=== PATIENT | female | born 1965 | race Caucasian/White ===

== ENCOUNTER 2024-05-12 13:53 | Emergency (ER) | payer BC ==
[~2024-05-12] VITALS: Ht 157.5 cm; Wt 81.4 kg
[2024-05-12 15:42] LABS: BASOPHILS % (AUTO) 0.5 % (0-1); EOSINOPHILS # (AUTO) 0.1 X10'3 (0-0.9); EOSINOPHILS % (AUTO) 0.7 % (0-6); HEMATOCRIT 37.4 % (35.0-45.0); HEMOGLOBIN 12.2 g/dl (12.0-16.0); LYMPHOCYTES # (AUTO) 0.7 X10'3 (1.1-4.8); LYMPHOCYTES % (AUTO) 7.5 % (21-51); MEAN CORPUSCULAR HEMOGLOBIN 29.6 PG (27.0-31.0); MEAN CORPUSCULAR HGB CONC 32.5 g/dL (33.0-36.5); MONOCYTES # (AUTO) 0.7 X10'3 (0-0.9); NEUTROPHILS # (AUTO) 7.4 X10'3 (1.8-7.7); NEUTROPHILS % (AUTO) 83.3 % (42-75); PLATELET COUNT 303 X10'3 (140-440); RED BLOOD COUNT 4.11 X10'6 (4.20-5.60); RED CELL DISTRIBUTION WIDTH 14.7 % (11.5-14.5); WHITE BLOOD COUNT 8.9 X10'3 (4.5-11.0)
[2024-05-12 16:06] LABS: ALBUMIN 3.4 G/DL (3.4-5.0); ANION GAP 12 (8-16); BLOOD UREA NITROGEN 23 MG/DL (7-18); BUN/CREATININE RATIO 26.7 (10.0-20.0); C-REACTIVE PROTEIN 1.88 MG/DL (0.0-0.5); CALCIUM 8.5 MG/DL (8.5-10.1); CHLORIDE 103 MMOL/L (99-107); CREATININE 0.86 MG/DL (0.40-0.90); GLUCOSE 97 MG/DL (70-104); POTASSIUM 4.2 MMOL/L (3.5-5.1); SODIUM 138 MMOL/L (135-145); TOTAL CARBON DIOXIDE 23.4 MMOL/L (24-32); eCRCL 56 ML/MIN; eGFR 68 ML/MIN
[2024-05-12] MEDS: ketorolac trometh 15mg/ml vial 15 MG/ML ML IM ONE (16:10)
[2024-05-12] MEDS: LIDOcaine 1% W/epiNEPHrine 1:100,000 20ml vial IJ ONE (17:50)
[2024-05-12] MEDS ORDERED: IBUP-1984 PO (18:15)
[2024-05-12 18:35] VITALS: BP 146/91; PULSE 83; RESP 16; TEMP 99.4; O2SAT 100
== END 2024-05-12 18:38 | disposition home or self-care (01) ==
LOC: ER 13:54
DX: M25.562 Pain in left knee (principal); Z88.1 Allergy status to other antibiotic agents
CPT/HCPCS: 36415; 73564; 80048; 85025; 85651; 86140; 93971; 96372; 99285; J1885; A6449